=== PATIENT | female | born 1985 | race Caucasian/White ===

== ENCOUNTER → 2017-05-23 | Outpatient (CLI) | payer OTHER ==
[2016-11-15 15:30] VITALS: BMI 39.5
[~2017-05-23] MED LIST: DOCU240C67 PO; FERR-53 PO; IBUP800T37 PO; PER PO
== END ==
LOC: LAB 08:46
PROVIDERS: ATTEND Nurse Practitioner
DX: Z02.89 Encounter for other administrative examinations (principal)
CPT/HCPCS: 36415; 99001